=== PATIENT | male | born 1955 | race Caucasian/White ===

== ENCOUNTER 2016-10-19 17:06 | Emergency (ER) | payer OTHER ==
[2016-10-19 17:27] VITALS: O2SAT 96
[2016-10-19] MEDS ORDERED: CLINDAMYCIN PHOSPHATE 150 MG/ML VIAL IM ONE (18:29)
[2016-10-19] MEDS ORDERED: CLINDAMYCIN HCL CAP 150 MG CAP PO ONE (18:29)
--- NOTE | 2016-10-19 18:29 | ED.PDOC ---
History of Present Illness - General Chief Complaint: Skin/Abrasion/Tear Stated Complaint: abscess Time Seen by Provider: 10/19/16 18:27 Source: patient Exam Limitations: no limitations - History of Present Illness Initial Comments: Lamin Castro 61 y/o male stated that he developed painful skin lesion on his left groin 3 days ago but today got more red adn paiful to touch. Timing/Duration: other - 3 days ago Location: extremities Improving Factors: nothing Worsening Factors: nothing Associated Symptoms: denies symptoms Allergies/Adverse Reactions: Allergies NO KNOWN ALLERGY Allergy (Verified 10/19/16 17:27) Home Medications: Ambulatory Orders Clindamycin HCl 300 mg PO BID #30 cap 10/19/16 Review of Systems - Review of Systems Constitutional: States: no symptoms reported EENTM: States: no symptoms reported Respiratory: States: no symptoms reported Cardiology: States: no symptoms reported Gastrointestinal/Abdominal: States: no symptoms reported Genitourinary: States: no symptoms reported Musculoskeletal: States: no symptoms reported Skin: States: see HPI Past Medical History (General) - Patient Medical History Hx Gastroesophageal Reflux: Yes Surgical History: other - Vaccination History Hx Influenza Vaccination: No Hx Pneumococcal Vaccination: No - Social History Hx Tobacco Use: No Hx Alcohol Use: Yes - occasional Hx Substance Use: No Hx Substance Use Treatment: No Hx Depression: No - Activities of Daily Living Patient Lives Alone: No - family Hospice Agency (if applicable):: None - Female History Patient is a Female of Child Bearing Age (10 -59 yrs old): No Patient : No Family Medical History - Family History Mother Family History: Unknown Physical Exam - Physical Exam General Appearance: Alert, No apparent distress Eyes, Ears, Nose, Throat Exam: PERRL/EOMI, normal ENT inspection, TMs normal Neck: non-tender, full range of motion Cardiovascular/Chest: normal peripheral pulses, regular rate, rhythm, no murmur Respiratory: chest non-tender, lungs clear, normal breath sounds Gastrointestinal/Abdominal: normal bowel sounds, non tender, soft, no organomegaly Back Exam: normal inspection Extremity: normal range of motion, non-tender, normal inspection, no pedal edema , no calf tenderness Neurologic: alert Skin Exam: warm/dry, normal color Skin Problem Location: other - left groin Skin Character: abscess, other - tender erythematous swelling Lymphatic: no adenopathy Procedures - Incision and Drainage #1 Site: left groin Procedure and Prep: betadine prep, sterile drapes applied, sterile dressings applied, gauze wick placed, irrigated, wound culture collected, pus drained Blade Size: 11 Procedure Comments: tolerated well Departure - Departure Clinical Impression: Groin abscess Time of Disposition: 19:13 Disposition: Discharge to Home or Self Care Condition: Good Departure Forms: ED Discharge - Pt. Copy, Patient Portal Self Enrollment Instructions: DI for Incision and Drainage of a Skin Abscess, DI for Skin Abscess Referrals: Roel Felton MD [Primary Care Provider] - 1-2 Weeks Prescriptions: Clindamycin HCl 300 mg PO BID #30 cap Home Medications: Ambulatory Orders Clindamycin HCl 300 mg PO BID #30 cap 10/19/16 Additional Instructions: Remove and change dressing tomorrow pm july DI;Return to emergency room as needed
[2016-10-19] MEDS ORDERED: TETANUS,DIPHTHERIA,PERTUSSIS 1 EA SYG IM ONE (18:31)
[2016-10-19] MEDS ORDERED: LIDOCAINE 1% 10 ML VIAL INJ ONE (18:41)
[2016-10-19] MEDS ORDERED: NEOMYCIN-BACITRACIN-POLYMYXIN 0.9 GM UD TOP ONE (18:42)
[2016-10-19] MEDS ORDERED: HYDROCOD/APAP 10/325 (ER DISP) # 3 tablets PO ONE (19:13)
[2016-10-19 19:34] VITALS: BP 156/96; TEMP 98.3
== END 2016-10-19 19:34 | disposition home or self-care (01) ==
LOC: ER 17:06
DX: L02.214 Cutaneous abscess of groin (principal); K21.9 Gastro-esophageal reflux disease without esophagitis; Z23 Encounter for immunization
CPT/HCPCS: 87070; 90715; J3490

== ENCOUNTER → 2016-11-08 | Outpatient (CLI) | payer OTHER | LOC: LAB.O 16:28 | PROVIDERS: ATTEND Internal Medicine Gastroenterology | DX: B18.2 Chronic viral hepatitis C (principal) ==

== ENCOUNTER → 2017-08-03 | Outpatient (CLI) | payer BC | LOC: LAB.O 12:14 | PROVIDERS: ATTEND Internal Medicine Gastroenterology | DX: R74.0 Nonspecific elevation of levels of transaminase and lactic acid dehydrogenase [LDH] (principal); B18.2 Chronic viral hepatitis C; Z85.048 Personal history of other malignant neoplasm of rectum, rectosigmoid junction, and anus ==

== ENCOUNTER → 2017-08-25 | Outpatient (CLI) | payer BC | LOC: LAB.NP 14:49 | PROVIDERS: ATTEND Surgery | DX: L02.416 Cutaneous abscess of left lower limb (principal) ==

== ENCOUNTER → 2019-04-19 | Outpatient (CLI) | payer BC | LOC: GMAJ 12:05 | PROVIDERS: ATTEND Family Medicine | DX: R03.0 Elevated blood-pressure reading, without diagnosis of hypertension (principal) ==

== ENCOUNTER → 2019-04-24 | Outpatient (CLI) | payer BC ==
--- NOTE | 2019-04-25 08:21 | US ---
EXAM DESCRIPTION: Carotid Duplex: ULTRASOUND. CLINICAL HISTORY: 63 years Male DIZZINESS AND GIDDINESS COMPARISON: MRI scan of the brain on the same visit. TECHNIQUE: Transcutaneous scanning utilizing cantu-scale and Doppler modes to evaluate the bilateral carotid systems and vertebral arteries. Percentage of diameter of stenosis or no stenosis recorded will be based upon NASCET criteria. FINDINGS: Peak systolic/end diastolic (CM-Sec) CCA Right 74/13 Left 110/23. ICA Right proximal 27/8, mid 54/21. Left proximal 44/16, mid 57/23. Vertebral Right 33/11 Left 33/9. ECA (PS Only) Right 60 left 63. ICA/CCA peak systolic ratio: Right 0.7 Left 0.5 ICA/CCA end diastolic ratio: Right 1.6 Left 1.0 Vertebral arteries: antegrade flow. Comments: Atherosclerotic plaque in the bilateral common carotid bulbs. Spectral broadening in the proximal left ICA. Less than 20% area and diameter stenosis in the right CCA bulb. IMPRESSION: 1. Doppler evaluation of the bilateral carotid systems and vertebral arteries shows no hemodynamically significant stenoses. 2. No significant amount of plaque seen in the carotid arteries bilaterally. Bilateral vertebral arteries showed antegrade-cephalad flow. Electronically signed by: Ruslan Solares MD 04/25/2019 8:19 AM DIRECTOR OF SOCIAL SERVICES
--- NOTE | 2019-04-25 08:44 | MRI ---
EXAM DESCRIPTION: Brain w/o Contrast: MRI. CLINICAL HISTORY: DIZZINESS AND GIDDINESS COMPARISON: Ultrasound duplex bilateral carotid and vertebral arteries today. TECHNIQUE: Multiplanar, high-field MRI unit, multiple diffusion sequences, multiple conventional sequences without contrast. FINDINGS: Small bilateral foci of hyperintense FLAIR and T2-weighted signal in the cantu/sub-cortical white matter junctions frontal lobes relatively symmetric. . No hemorrhage, no cerebral edema.. Normal signal in the bilateral basal ganglia. Normal signal in the brainstem and cerebellar hemispheres. No hemorrhage, no parenchymal edema, no mass-effect. Concordance of the diffusion and non-diffusion sequences with no diffusion restriction. Cortical sulci, ventricles, and other CSF spaces, and the subdural spaces are minimally prominent for patient's age. No effacement or displacement. No midline shift. No extra-axial hemorrhage. Normal flow signal void in the major vessels of the [place], and the venous sinuses. IACs are symmetric bilaterally. Right vertebral artery is dominant over the left. Focal fluid signal in at least one of the right mastoid air cells. No mass effect in the bilateral cerebellopontine angles. Pituitary gland occupies most of the sella. Base of the cerebellar tonsils is above the foramen magnum. Paranasal sinuses are unremarkable.. The bony calvarium is intact. IMPRESSION: 1. Focal bilateral frontal lobe white matter signal in the subcortical layers is most likely related to cerebral microvascular disease or aging. Less likely related to migraine headaches, vasculitis, or demyelination process. Normal diffusion noncontrast MRI scan with no evidence of acute or subacute infarction. No intra-axial or extra-axial hemorrhage. 2. Possible early or mild central and cortical atrophy of unknown cause. 3. Focal inflammatory reaction right mastoid air cells. Paranasal sinuses are unremarkable. Electronically signed by: Ruslan Solares MD 04/25/2019 8:42 AM [facility]
== END ==
LOC: MRI 07:47
PROVIDERS: ATTEND Family Medicine
DX: R42 Dizziness and giddiness (principal); R90.82 White matter disease, unspecified; H70.91 Unspecified mastoiditis, right ear